=== PATIENT | male | born 1940 | race Caucasian/White ===

== ENCOUNTER 2017-11-30 16:52 | Inpatient (IN) | payer MEDICARE, OTHER ==
[~2017-11-30] VITALS: Ht 165.1 cm; Wt 83.0 kg
[~2017-11-30 16:52] MED LIST: ATEN50TA PO; ATOR40TA PO; FENO135C4 PO; FURO-144 PO; METF850T2 PO; PANT40TA2 PO; PIOG15TA8 PO
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
--- NOTE | 2017-11-30 17:02 | NUR ---
DR MORROW AT BEDSIDE FOR EVAL.
[2017-11-30 17:13] LABS: BASOPHILS # (AUTO) 0.1 /CMM (0.0-0.2); BASOPHILS % (AUTO) 0.7 % (0.0-2.0); EOSINOPHILS # (AUTO) 0.2 /CMM (0.0-0.7); EOSINOPHILS % (AUTO) 2.8 % (0.0-6.0); HEMATOCRIT 35 % (39-51); HEMOGLOBIN 12.1 g/dL (13.5-17.5); LYMPHOCYTES # (AUTO) 1.8 /CMM (0.8-4.8); LYMPHOCYTES % (AUTO) 20.2 % (20.0-44.0); MEAN CORPUSCULAR HEMOGLOBIN 29 PG (26.0-33.0); MEAN CORPUSCULAR HGB CONC 35 g/dl (31.0-36.0); MEAN CORPUSCULAR VOLUME 85 fL (80-96); MONOCYTES # (AUTO) 0.7 /CMM (0.1-1.30); MONOCYTES % (AUTO) 8.2 % (2.0-12.0); NEUTROPHILS % (AUTO) 68.1 % (43.0-81.0); PLATELET COUNT (AUTO) 330 /CMM (150-450); RDW COEFFICIENT OF VARIATION 14.3 (11.5-15.0); RED BLOOD CELL COUNT(AUTO) 4.14 MIL/uL (4.5-6.0); WHITE BLOOD COUNT (AUTO) 8.8 K/uL (4.3-11.0)
--- NOTE | 2017-11-30 17:21 | NUR ---
ANDREA RN,NETWORK SECURITY ADMINISTRATOR CALLED FOR EVAL
[2017-11-30 17:27] LABS: CALCIUM, SERUM 8.8 mg/dL (8.5-10.1); CARBON DIOXIDE 28 mmol/L (21-32); CHLORIDE 102 mmol/L (98-107); CREATININE 0.9 mg/dL (0.6-1.3); GLUCOSE 99 mg/dL (74-106); POTASSIUM 3.9 mmol/L (3.5-5.1); SODIUM SERUM 136 mmol/L (136-145); UREA NITROGEN, BLOOD 23 mg/dL (7-18)
[2017-11-30 17:35] LABS: ALANINE AMINOTRANSFERASE 30 U/L (12-78); ALBUMIN 3.6 g/dL (3.4-5.0); ALCOHOL, BLOOD < 3 mg/dL (0-0); ALKALINE PHOSPHATASE 95 U/L (46-116); ASPARTATE AMINOTRANSFERASE 27 U/L (15-37); BILIRUBIN,TOTAL 0.3 mg/dL (0.2-1.0); TOTAL PROTEIN, SERUM 7.4 g/dL (6.4-8.2)
[2017-11-30 17:36] LABS: ACETAMINOPHEN < 2 ug/ml (10-30); SALICYLATE < 2.8 mg/dL (2.8-20.0)
[2017-11-30 18:34] LABS: APPEARANCE,URINE Slightly Cloudy (CLEAR); BILIRUBIN,URINE Negative (NEGATIVE); BLOOD, URINE Negative Ery/uL (NEGATIVE); COLOR,URINE Yellow (YELLOW); KETONES,URINE Negative (NEGATIVE); LEUKOCYTE ESTERASE ,URINE Moderate (NEGATIVE); NITRITE, URINE Negative (NEGATIVE); PROTEIN,URINE Negative (NEGATIVE); UGLUCOSE Negative (NEGATIVE); UROBILINOGEN,URINE 0.2 EU/dL (0.2)
[2017-11-30 18:41] LABS: BACTERIA,URINE Few /HPF (None Seen); RBC,URINE 0-2 /HPF (0-2); SQUAMOUS EPITHELIAL CELL,UR Few /HPF (None Seen)
--- NOTE | 2017-11-30 18:50 | NUR ---
BED 211-B
--- NOTE | 2017-11-30 18:55 | NUR ---
REPORT GIVEN TO GURMEET MURPHY FOR LOR
[2017-11-30] MEDS ORDERED: MAGN400O6 PO (18:58)
[2017-11-30] MEDS ORDERED: ACET-2605 PO (18:58)
[2017-11-30] MEDS ORDERED: BISA10SU8 RC (18:58)
[2017-11-30] MEDS ORDERED: ACET-868 PO (18:58)
[2017-11-30] MEDS ORDERED: SENN-167 PO (18:58)
[2017-11-30] MEDS ORDERED: QUET25TA PO (18:58)
[2017-11-30] MEDS ORDERED: CHOL100044 PO (18:58)
[2017-11-30] MEDS ORDERED: METF500T7 PO (18:58)
[2017-11-30] MEDS ORDERED: CLOM50TA2 PO (18:58)
[2017-11-30] MEDS ORDERED: DOCU-141 PO (18:58)
[2017-11-30] MEDS ORDERED: FURO-145 PO (18:58)
[2017-11-30] MEDS ORDERED: NA P133E RC (18:58)
[2017-11-30] MEDS ORDERED: LORAZEPAM 0.5 MG TABLET PO PRN (20:00)
[2017-11-30] MEDS ORDERED: ACETAMINOPHEN 325 MG TABLET PO PRN (20:00)
[2017-11-30] MEDS ORDERED: MAG HYDROX/AL HYDROX/SIMETH 30 ML UDC PO PRN (20:00)
[2017-11-30] MEDS ORDERED: TEMAZEPAM 7.5 MG CAPSULE PO PRN (20:00)
[2017-11-30] MEDS ORDERED: MAGNESIUM HYDROXIDE 30 ML UDC PO PRN ×2 (20:00→21:30)
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
[2017-11-30] MEDS ORDERED: MISCELLANEOUS MED 1 EA EA PO PRN (21:30)
[2017-11-30] MEDS ORDERED: BISACODYL SUPP (10 MG) 10 MG/SUPP.RECT SUPP.RECT RC PRN (21:30)
[2017-11-30] MEDS ORDERED: NA PHOS,M-B/NA PHOS,DI-BA 1 EA ENEMA RC PRN (21:30)
[2017-11-30] MEDS ORDERED: DEXTROSE 50%-WATER 50 ML DISP.SYRIN IV PRN (21:30)
[2017-11-30] MEDS ORDERED: SULFAMETH/TRIMETH 800/160 MG 1 UDTAB TABLET PO ONE (21:37)
[2017-11-30] MEDS: SULFAMETH/TRIMETH 800/160 MG 1 UDTAB TABLET PO SCH (21:49)
[2017-11-30] MEDS ORDERED: ATORVASTATIN 10 MG TABLET ONE (21:52)
[2017-11-30] MEDS: BLOOD SUGAR DIAGNOSTIC 1 EACH STRIP VI SCH (22:00)
[2017-11-30] MEDS ORDERED: ATORVASTATIN 40 MG TABLET PO SCH (22:00)
[2017-12-01 00:23] VITALS: BP 133/80
[2017-12-01] MEDS: BLOOD SUGAR DIAGNOSTIC 1 EACH STRIP VI SCH ×4 (07:30→21:31)
[2017-12-01 08:00] VITALS: BP 120/80
[2017-12-01 08:13] LABS: BASOPHILS # (AUTO) 0.1 /CMM (0.0-0.2); BASOPHILS % (AUTO) 0.7 % (0.0-2.0); EOSINOPHILS # (AUTO) 0.2 /CMM (0.0-0.7); EOSINOPHILS % (AUTO) 2.8 % (0.0-6.0); HEMATOCRIT 35 % (39-51); HEMOGLOBIN 11.9 g/dL (13.5-17.5); LYMPHOCYTES % (AUTO) 13.4 % (20.0-44.0); MEAN CORPUSCULAR HEMOGLOBIN 30 PG (26.0-33.0); MEAN CORPUSCULAR HGB CONC 35 g/dl (31.0-36.0); MEAN CORPUSCULAR VOLUME 86 fL (80-96); MONOCYTES # (AUTO) 0.6 /CMM (0.1-1.30); MONOCYTES % (AUTO) 8.4 % (2.0-12.0); NEUTROPHILS # (AUTO) 5.7 /CMM (1.8-8.9); NEUTROPHILS % (AUTO) 74.7 % (43.0-81.0); PLATELET COUNT (AUTO) 304 /CMM (150-450); WHITE BLOOD COUNT (AUTO) 7.6 K/uL (4.3-11.0)
[2017-12-01 08:33] LABS: ALANINE AMINOTRANSFERASE 24 U/L (12-78); ALBUMIN 3.2 g/dL (3.4-5.0); ALKALINE PHOSPHATASE 85 U/L (46-116); ASPARTATE AMINOTRANSFERASE 25 U/L (15-37); BILIRUBIN,TOTAL 0.4 mg/dL (0.2-1.0); CALCIUM, SERUM 8.9 mg/dL (8.5-10.1); CARBON DIOXIDE 28 mmol/L (21-32); CHLORIDE 104 mmol/L (98-107); CREATININE 0.8 mg/dL (0.6-1.3); GLUCOSE 116 mg/dL (74-106); POTASSIUM 4.1 mmol/L (3.5-5.1); SODIUM SERUM 141 mmol/L (136-145); TOTAL PROTEIN, SERUM 6.9 g/dL (6.4-8.2); UREA NITROGEN, BLOOD 17 mg/dL (7-18)
[2017-12-01 08:35] LABS: CHOLESTEROL 132 mg/dL (<200); HDL CHOLESTEROL 41 mg/dL (40-60); LDL 78 mg/dL (0-99); TRIGLYCERIDES 77 mg/dL (30-150)
[2017-12-01] MEDS: METFORMIN XR 500 MG TAB.SR.24H PO SCH (08:48)
[2017-12-01] MEDS: SENNOSIDES 8.6 MG TABLET PO SCH (08:48)
[2017-12-01] MEDS: SULFAMETH/TRIMETH 800/160 MG 1 UDTAB TABLET PO SCH ×2 (08:49→21:25)
[2017-12-01] MEDS: CHOLECALCIFEROL 1,000 UNIT TABLET (VIT D3) PO SCH (08:49)
[2017-12-01] MEDS: PANTOPRAZOLE 40 MG TABLET.DR PO SCH (08:49)
[2017-12-01] MEDS: DOCUSATE SODIUM 100 MG CAPSULE PO SCH ×2 (08:49→17:28)
[2017-12-01] MEDS: FUROSEMIDE 20 MG TABLET PO SCH (08:55)
[2017-12-01] MEDS: INSULIN REGULAR, HUMAN 100 UNIT/ML 3 ML VIAL SQ PRN (12:21)
[2017-12-01 16:00] VITALS: BP 140/78
[2017-12-01 20:00] VITALS: BP 116/71
[2017-12-01] MEDS: QUETIAPINE FUMARATE 25 MG TABLET PO SCH (21:25)
[2017-12-01] MEDS: ATORVASTATIN 10 MG TABLET PO SCH (21:39)
[2017-12-02 08:00] VITALS: BP 111/59
[2017-12-02] MEDS: QUETIAPINE FUMARATE 25 MG TABLET PO SCH ×2 (08:14→21:57)
[2017-12-02] MEDS: SULFAMETH/TRIMETH 800/160 MG 1 UDTAB TABLET PO SCH ×2 (08:15→21:57)
[2017-12-02] MEDS: FUROSEMIDE 20 MG TABLET PO SCH (08:15)
[2017-12-02] MEDS: METFORMIN XR 500 MG TAB.SR.24H PO SCH (08:16)
[2017-12-02] MEDS: BLOOD SUGAR DIAGNOSTIC 1 EACH STRIP VI SCH ×4 (08:16→22:13)
[2017-12-02] MEDS: CHOLECALCIFEROL 1,000 UNIT TABLET (VIT D3) PO SCH (08:16)
[2017-12-02] MEDS: PANTOPRAZOLE 40 MG TABLET.DR PO SCH (08:16)
[2017-12-02] MEDS: SENNOSIDES 8.6 MG TABLET PO SCH (08:38)
[2017-12-02] MEDS: DOCUSATE SODIUM 100 MG CAPSULE PO SCH ×2 (08:38→16:59)
[2017-12-02 16:00] VITALS: BP_SYST 120; BP_SYST 124; BP_DIAS 60; BP_DIAS 74
[2017-12-02 19:47] VITALS: BP_SYST 101; BP_SYST 123; BP_DIAS 57; BP_DIAS 80
[2017-12-02] MEDS: ATORVASTATIN 10 MG TABLET PO SCH (21:57)
[2017-12-02] MEDS: MUPIROCIN 2% CREAM 15 GM TUBE TP SCH (21:57)
[2017-12-02] MEDS: *INSULIN REGULAR(HUMULIN R)HUM 100 UNIT/ML VIAL SQ PRN (22:43)
--- NOTE | 2017-12-03 01:18 | NUR ---
Pt's blood sugar level last night was 167 mg/dl & 3 Units of Regular Insulin was given SC as ordered by .
--- NOTE | 2017-12-03 01:18 | NUR ---
Pt has been continuously responding to internal stimuli, mentally preoccupied, disheveled, delusional, guarded, & anxious but compliant with care w/o any promptings.
[2017-12-03 08:00] VITALS: BP 106/60
[2017-12-03] MEDS: METFORMIN XR 500 MG TAB.SR.24H PO SCH (08:35)
[2017-12-03] MEDS: CHOLECALCIFEROL 1,000 UNIT TABLET (VIT D3) PO SCH (08:35)
[2017-12-03] MEDS: FUROSEMIDE 20 MG TABLET PO SCH (08:35)
[2017-12-03] MEDS: SENNOSIDES 8.6 MG TABLET PO SCH (08:36)
[2017-12-03] MEDS: SULFAMETH/TRIMETH 800/160 MG 1 UDTAB TABLET PO SCH ×2 (08:36→21:37)
[2017-12-03] MEDS: PANTOPRAZOLE 40 MG TABLET.DR PO SCH (08:37)
[2017-12-03] MEDS: QUETIAPINE FUMARATE 25 MG TABLET PO SCH ×2 (08:37→21:38)
[2017-12-03] MEDS: DOCUSATE SODIUM 100 MG CAPSULE PO SCH ×2 (08:37→16:39)
[2017-12-03] MEDS: BLOOD SUGAR DIAGNOSTIC 1 EACH STRIP VI SCH ×4 (08:38→21:38)
[2017-12-03] MEDS: MUPIROCIN 2% CREAM 15 GM TUBE TP SCH ×2 (08:41→21:38)
[2017-12-03 16:10] VITALS: BP 120/69
--- NOTE | 2017-12-03 16:44 | NUR ---
Initial Discharge Plan: Pt lives in the [facility] facility, [address] [place] [address]; . Pt would like to return to the Assisted Living facility upon discharge. TIGIST called the assisted living facility however was unable to speak to anyone.TIGIST left a voicemail message for Kiera. TIGIST also contacted pts person to notify, Casey Strickland , found on face sheet and left a message requesting for a callback.
--- NOTE | 2017-12-03 19:30 | NUR ---
GPS RN NOTE, RECEIVED PATIENT AWAKE AND IN BED, HAS A COMPLAINT OF LOWER BACK PAIN AT 3 OUT 10 ON THE PAIN SCALE. PATIENT IS BEING TREATED WITH ORAL PAIN MEDICATION FOR THIS PAIN. PATIENT DISPLAYING NO S/S OF APPARENT DISTRESS AT THIS TIME. PATIENT BREATHING IS UNLABORED WITH EQUAL RISE AND FALL OF THE CHEST. PATIENT IS ALERT AND ORIENTED X 2 ON ROOM AIR WITH A SPO2 92 %. PATIENT IS MED COMPLIANT, CONFUSED AT TIMES, IRRITABLE, ANXIOUS, COOPERATIVE, AND NEEDS REORIENTATION AT TIMES. PATIENT DENIES SI AND HI AT THIS TIME. PATIENT ASSISTED WITH TURNING AND REPOSITIONING Q2HR AND PRN FOR COMFORT AND CIRCULATION. PATIENT HAS NO NEEDS AT THIS TIME. PATIENT EDUCATED ON THE USE OF THE CALL LINDSEY. PATIENT BED SIDE RAILS UP X 2 FOR SAFETY, BED IS LOCKED AND LOW, WILL CONTINUE TO MONITOR THIS PATIENT WITH THE HELP OF STAFF.
[2017-12-03 19:44] VITALS: BP 113/61
[2017-12-03] MEDS: ATORVASTATIN 10 MG TABLET PO SCH (21:38)
--- NOTE | 2017-12-03 21:38 | NUR ---
GPS RN NOTE, PERFORMED ACCU CHECK ON PATIENT WITH A BLOOD SUGAR RESULT OF 109. NO INSULIN COVERAGE PER SLIDING SCALE AT THIS TIME. WILL CONTINUE TO MONITOR THIS PATIENT.
[2017-12-04 08:00] VITALS: BP 100/52
[2017-12-04] MEDS: SULFAMETH/TRIMETH 800/160 MG 1 UDTAB TABLET PO SCH ×2 (08:05→21:13)
[2017-12-04] MEDS: SENNOSIDES 8.6 MG TABLET PO SCH (08:05)
[2017-12-04] MEDS: DOCUSATE SODIUM 100 MG CAPSULE PO SCH ×2 (08:05→16:28)
[2017-12-04] MEDS: CHOLECALCIFEROL 1,000 UNIT TABLET (VIT D3) PO SCH (08:05)
[2017-12-04] MEDS: METFORMIN XR 500 MG TAB.SR.24H PO SCH (08:05)
[2017-12-04] MEDS: PANTOPRAZOLE 40 MG TABLET.DR PO SCH (08:05)
[2017-12-04] MEDS: FUROSEMIDE 20 MG TABLET PO SCH (08:05)
[2017-12-04] MEDS: QUETIAPINE FUMARATE 25 MG TABLET PO SCH ×2 (08:40→21:13)
[2017-12-04] MEDS: BLOOD SUGAR DIAGNOSTIC 1 EACH STRIP VI SCH ×4 (08:40→21:42)
[2017-12-04] MEDS: MUPIROCIN 2% CREAM 15 GM TUBE TP SCH ×2 (08:41→21:14)
--- NOTE | 2017-12-04 10:41 | NUR ---
Discharge Planning: TIGIST received a message from Kiera from [facility], [facility] informing that pt will be transferring to [facility] when he is ready for discharge. TIGIST contacted Kiera and left a message requesting a callback. TIGIST will follow up to ensure pt is safely and properly discharged.
--- NOTE | 2017-12-04 13:19 | NUR ---
Discharge Planning: TIGIST spoke to Kyle from [facility] and inquired about pts acceptance to their facility, per [facility] reports. TIGIST was informed by Kiear from [facility] that pt was no longer appropriate for their facility and that [facility] can best address his needs. Kyle asked to review inquiry prior to deciding. TIGIST will fax inquiry to [facility], Kyle Núñez on this date.
--- NOTE | 2017-12-04 13:25 | NUR ---
Discharge Planning: SW faxed inquiry (face sheet, medical H&P, P&P, and medication list) to [facility] , attention to Kyle. SW will follow up to ensure pt is safely and properly discharged.
[2017-12-04 16:07] VITALS: BP 116/67
[2017-12-04] MEDS: *INSULIN REGULAR(HUMULIN R)HUM 100 UNIT/ML VIAL SQ PRN (17:24)
--- NOTE | 2017-12-04 17:52 | NUR ---
GPS/RN BS 142. 2 UNITS REGULAR INSULIN ADMINISTERED, WILL CONTINUE TO MONITOR.
[2017-12-04 20:00] VITALS: BP 113/55
[2017-12-04] MEDS: ATORVASTATIN 10 MG TABLET PO SCH (21:13)
[2017-12-04 23:00] VITALS: BP 116/68
[2017-12-05] MEDS ORDERED: Z GUARD REMEDY 2 OZ OINT TP PRN (06:00)
[2017-12-05] MEDS: BLOOD SUGAR DIAGNOSTIC 1 EACH STRIP VI SCH ×4 (07:42→21:42)
[2017-12-05] MEDS: PANTOPRAZOLE 40 MG TABLET.DR PO SCH (07:44)
[2017-12-05] MEDS: SULFAMETH/TRIMETH 800/160 MG 1 UDTAB TABLET PO SCH ×2 (09:04→21:05)
[2017-12-05] MEDS: FUROSEMIDE 20 MG TABLET PO SCH (09:04)
[2017-12-05] MEDS: CHOLECALCIFEROL 1,000 UNIT TABLET (VIT D3) PO SCH (09:04)
[2017-12-05] MEDS: DOCUSATE SODIUM 100 MG CAPSULE PO SCH ×2 (09:04→16:24)
[2017-12-05] MEDS: METFORMIN XR 500 MG TAB.SR.24H PO SCH (09:04)
[2017-12-05] MEDS: SENNOSIDES 8.6 MG TABLET PO SCH (09:04)
[2017-12-05] MEDS: QUETIAPINE FUMARATE 25 MG TABLET PO SCH ×2 (09:05→21:06)
[2017-12-05 09:08] VITALS: BP 112/64
[2017-12-05] MEDS: MUPIROCIN 2% CREAM 15 GM TUBE TP SCH ×2 (09:32→21:07)
[2017-12-05] MEDS: INSULIN REGULAR, HUMAN 100 UNIT/ML 3 ML VIAL SQ PRN (09:34)
--- NOTE | 2017-12-05 11:19 | NUR ---
Discharge Planning: TIGIST spoke to Colleen from the [facility] per pt request. Pt had concerns due to a pending court appearance on 12/07/2016. TIGIST informed the office that pt was in the hospital and date of discharge was uncertain. Per Colleen, if pt fails to report to her court appearance a warrant will be issued. Pt can not be excused based on the law, per Colleen. TIGIST was informed that once pt is released she should present herself to the [facility] clerks office at the [facility] immediately and provide proof of her stay in the hospital. TIGIST will inform pt. Addendum: 12/05/17 at 1329 by JASON ESCOTO Discharging Planning note pertains to another pt, Haley Browning.
--- NOTE | 2017-12-05 13:29 | NUR ---
Discharge Planning: TIGIST arranged with Kyle from [facility] to assess pt tomorrow, at 10:30- 11:00 am to inform placement. SW will follow up to ensure pt is properly and safely discharged.
[2017-12-05 16:00] VITALS: BP 120/64
[2017-12-05 20:32] VITALS: BP 121/69
[2017-12-05] MEDS: ATORVASTATIN 10 MG TABLET PO SCH (21:05)
[2017-12-06] MEDS: BLOOD SUGAR DIAGNOSTIC 1 EACH STRIP VI SCH ×4 (07:49→21:43)
[2017-12-06 08:00] VITALS: BP 109/60
[2017-12-06] MEDS: PANTOPRAZOLE 40 MG TABLET.DR PO SCH (08:15)
[2017-12-06] MEDS: METFORMIN XR 500 MG TAB.SR.24H PO SCH (08:41)
[2017-12-06] MEDS: SENNOSIDES 8.6 MG TABLET PO SCH (08:41)
[2017-12-06] MEDS: SULFAMETH/TRIMETH 800/160 MG 1 UDTAB TABLET PO SCH ×2 (08:41→21:42)
[2017-12-06] MEDS: MUPIROCIN 2% CREAM 15 GM TUBE TP SCH ×2 (08:41→21:43)
[2017-12-06] MEDS: FUROSEMIDE 20 MG TABLET PO SCH (08:41)
[2017-12-06] MEDS: DOCUSATE SODIUM 100 MG CAPSULE PO SCH ×2 (08:41→16:14)
[2017-12-06] MEDS: CHOLECALCIFEROL 1,000 UNIT TABLET (VIT D3) PO SCH (08:41)
[2017-12-06] MEDS: QUETIAPINE FUMARATE 25 MG TABLET PO SCH ×2 (08:42→21:42)
--- NOTE | 2017-12-06 09:40 | NUR ---
GPS/RN-NOTES PATIENT C/O OF NOT HAVING BM FOR SEVERAL DAYS. DULCOLAX SUPPOSITORY GIVEN PRN ORDER. WILL CONT. MONITORING.
--- NOTE | 2017-12-06 10:35 | NUR ---
GPS/RN-NOTES PATIENT HAD X1 MEDIUM BM.
--- NOTE | 2017-12-06 11:47 | NUR ---
Discharge Planning: TIGIST facilitated pts assessment from [facility] on this date. Per Kyle, Staff pt can be discharged to their facility when he is ready. TIGIST will follow up.
--- NOTE | 2017-12-06 11:50 | NUR ---
Discharge Planning: SW discussed pts discharge plan with Dr. Schneider. Per Psychiatrist pt is ready for discharge on Sunday12/10/2016. SW will follow up and make arrangements for pts discharge.
--- NOTE | 2017-12-06 12:30 | NUR ---
GPS/RN-NOTES PATIENT BLOOD SUGAR WAS 139MG/DL, INSULIN COVERAGE OF 2 UNITS R NOT GIVEN DUE TO PATIENT STATED" NO INSULIN AT THIS TIME". OFFERED X3 STILL REFUSED. PATIENT HAD NO S/SX OF HYPERGLYCEMIA AT THIS TIME. WILL CONT. MONITORING.
[2017-12-06 16:00] VITALS: BP 109/62
[2017-12-06 20:00] VITALS: BP 112/64
[2017-12-06] MEDS: ATORVASTATIN 10 MG TABLET PO SCH (21:42)
[2017-12-07] MEDS: BLOOD SUGAR DIAGNOSTIC 1 EACH STRIP VI SCH ×4 (07:42→21:03)
[2017-12-07] MEDS: PANTOPRAZOLE 40 MG TABLET.DR PO SCH (07:45)
[2017-12-07 08:00] VITALS: BP 106/62
[2017-12-07] MEDS: METFORMIN XR 500 MG TAB.SR.24H PO SCH (08:37)
[2017-12-07] MEDS: SENNOSIDES 8.6 MG TABLET PO SCH (08:37)
[2017-12-07] MEDS: DOCUSATE SODIUM 100 MG CAPSULE PO SCH ×2 (08:37→16:06)
[2017-12-07] MEDS: SULFAMETH/TRIMETH 800/160 MG 1 UDTAB TABLET PO SCH ×2 (08:38→21:25)
[2017-12-07] MEDS: QUETIAPINE FUMARATE 25 MG TABLET PO SCH ×2 (08:38→21:25)
[2017-12-07] MEDS: FUROSEMIDE 20 MG TABLET PO SCH (08:38)
[2017-12-07] MEDS: CHOLECALCIFEROL 1,000 UNIT TABLET (VIT D3) PO SCH (08:38)
[2017-12-07] MEDS: MUPIROCIN 2% CREAM 15 GM TUBE TP SCH ×2 (08:39→20:26)
[2017-12-07 16:00] VITALS: BP 122/78
[2017-12-07 20:00] VITALS: BP 120/71
[2017-12-07] MEDS: ATORVASTATIN 10 MG TABLET PO SCH (21:25)
[2017-12-08] MEDS: BLOOD SUGAR DIAGNOSTIC 1 EACH STRIP VI SCH ×4 (07:22→22:50)
[2017-12-08] MEDS: PANTOPRAZOLE 40 MG TABLET.DR PO SCH (07:25)
[2017-12-08 08:07] VITALS: BP 141/77
[2017-12-08] MEDS: QUETIAPINE FUMARATE 25 MG TABLET PO SCH ×2 (08:17→21:22)
[2017-12-08] MEDS: SENNOSIDES 8.6 MG TABLET PO SCH (08:17)
[2017-12-08] MEDS: CHOLECALCIFEROL 1,000 UNIT TABLET (VIT D3) PO SCH (08:17)
[2017-12-08] MEDS: DOCUSATE SODIUM 100 MG CAPSULE PO SCH ×2 (08:17→16:20)
[2017-12-08] MEDS: METFORMIN XR 500 MG TAB.SR.24H PO SCH (08:17)
[2017-12-08] MEDS: SULFAMETH/TRIMETH 800/160 MG 1 UDTAB TABLET PO SCH ×2 (08:17→20:24)
[2017-12-08] MEDS: FUROSEMIDE 20 MG TABLET PO SCH (08:17)
[2017-12-08] MEDS: MUPIROCIN 2% CREAM 15 GM TUBE TP SCH ×2 (08:18→20:26)
[2017-12-08 15:52] VITALS: BP 131/80
[2017-12-08 20:00] VITALS: BP 132/74
[2017-12-08] MEDS: ATORVASTATIN 10 MG TABLET PO SCH (21:22)
--- NOTE | 2017-12-08 22:51 | NUR ---
ACCUCHECK 128 MG/DL, NO INSULIN DUE AT THIS TIME.
[2017-12-09] MEDS: BLOOD SUGAR DIAGNOSTIC 1 EACH STRIP VI SCH ×4 (07:50→21:30)
[2017-12-09] MEDS: PANTOPRAZOLE 40 MG TABLET.DR PO SCH (07:53)
[2017-12-09] MEDS: DOCUSATE SODIUM 100 MG CAPSULE PO SCH ×2 (08:48→17:48)
[2017-12-09] MEDS: MUPIROCIN 2% CREAM 15 GM TUBE TP SCH ×2 (08:48→21:29)
[2017-12-09] MEDS: SENNOSIDES 8.6 MG TABLET PO SCH (08:48)
[2017-12-09] MEDS: FUROSEMIDE 20 MG TABLET PO SCH (08:48)
[2017-12-09] MEDS: METFORMIN XR 500 MG TAB.SR.24H PO SCH (08:48)
[2017-12-09] MEDS: CHOLECALCIFEROL 1,000 UNIT TABLET (VIT D3) PO SCH (08:48)
[2017-12-09] MEDS: QUETIAPINE FUMARATE 25 MG TABLET PO SCH ×2 (08:48→21:29)
[2017-12-09] MEDS: SULFAMETH/TRIMETH 800/160 MG 1 UDTAB TABLET PO SCH ×2 (08:48→21:28)
[2017-12-09 09:00] VITALS: BP 126/90
[2017-12-09 16:00] VITALS: BP 112/59
[2017-12-09 19:40] VITALS: BP 116/62
[2017-12-09] MEDS: ATORVASTATIN 10 MG TABLET PO SCH (21:28)
[2017-12-10 08:00] VITALS: BP 105/58
[2017-12-10] MEDS: CHOLECALCIFEROL 1,000 UNIT TABLET (VIT D3) PO SCH (08:50)
[2017-12-10] MEDS: DOCUSATE SODIUM 100 MG CAPSULE PO SCH (08:50)
[2017-12-10] MEDS: METFORMIN XR 500 MG TAB.SR.24H PO SCH (08:51)
[2017-12-10] MEDS: FUROSEMIDE 20 MG TABLET PO SCH (08:51)
[2017-12-10] MEDS: PANTOPRAZOLE 40 MG TABLET.DR PO SCH (08:51)
[2017-12-10] MEDS: SENNOSIDES 8.6 MG TABLET PO SCH (08:51)
[2017-12-10] MEDS: QUETIAPINE FUMARATE 25 MG TABLET PO SCH (08:51)
[2017-12-10] MEDS: SULFAMETH/TRIMETH 800/160 MG 1 UDTAB TABLET PO SCH (09:50)
[2017-12-10] MEDS: MUPIROCIN 2% CREAM 15 GM TUBE TP SCH (09:50)
[2017-12-10] MEDS: BLOOD SUGAR DIAGNOSTIC 1 EACH STRIP VI SCH (10:12)
--- NOTE | 2017-12-10 10:32 | NUR ---
Discharge Planning: TIGIST spoke to Dez, Staff from [facility] to remind them of pts discharge to their facility on this date. Dez was unable to locate Kyle, Coordinator at the time, however stated that she would relay the information to him.
--- NOTE | 2017-12-10 11:30 | NUR ---
TEACHER PRESCHOOL NOTE:PATIENT ALERT ,VERBALLY RESPONSIVE ,DENIES SI/HI/AVH, VS STABLE ,NO C/O PAIN . AND ANNE-MARIE BACK ROLL LATHE OPERATOR NOTIFIED OF DISCHARGE WITH DISCHARGE ORDERS ALL ORDERS CARRIED OUT .ALL BELONGINGS RETURN TO PATIENT REPORT GIVEN TO DARWIN MURPHY IN [facility] .PATIENT LEFT AT 1130 BY AMBULANCE .
--- NOTE | 2017-12-10 14:00 | NUR ---
Discharge Note: Patient will be discharged to [facility], [address] [place] [address]; via ambulance (trip # [id number]) at 10:30 am. Pt has been notified and is in agreement. SW spoke to Treva, [facility] of pts transfer; which she is aware and in agreement. SW also notified pts contact representative, Casey Strickland . Pts Technical Artist is Dr. Arroyo, [address] [place] [address]; and Psychiatrist is Dr. Schneider, [address] [place] [address]; .
== END 2017-12-10 13:00 | DRG 885 ==
LOC: ER 16:54 → GPS 19:35
PROVIDERS: ADMIT Psychiatry & Neurology Psychiatry; ATTEND Internal Medicine
DX: F29 Unspecified psychosis not due to a substance or known physiological condition (principal); E11.9 Type 2 diabetes mellitus without complications; F03.91 Unspecified dementia, unspecified severity, with behavioral disturbance; F32.3 Major depressive disorder, single episode, severe with psychotic features; E66.01 Morbid (severe) obesity due to excess calories; I10 Essential (primary) hypertension; E78.5 Hyperlipidemia, unspecified; Z79.84 Long term (current) use of oral hypoglycemic drugs; Z68.30 Body mass index [BMI] 30.0-30.9, adult; Z73.6 Limitation of activities due to disability
CPT/HCPCS: 36415; 80048-TC; 80053-TC; 80061-TC; 80076-TC; 80305; 81000-TC; 82962-TC; 85025-TC; 87081-TC; 87086-TC; 97110-TC; 97116-TC; 97530-TC; A4606; G0480; J1815; Z7610

== ENCOUNTER 2022-02-28 00:21 | Inpatient (IN) | payer MEDICARE, OTHER ==
[~2022-02-28] VITALS: Ht 167.6 cm; Wt 78.9 kg
[~2022-02-28 00:21] MED LIST changes: +ACET-2605 PO; +ACET-868 PO; -ATEN50TA PO; +BISA10SU11 RC; +CHOL100044 PO; +CLOM50TA18 PO; +DOCU-141 PO; -FENO135C4 PO; -FURO-144 PO; +FURO-145 PO; +MAGN400O6 PO; +METF-881 PO; -METF850T2 PO; +NA P133E RC; -PIOG15TA8 PO; +QUET25TA PO; +SENN-261 PO
--- NOTE | 2022-02-28 00:22 | NUR ---
DAYA Santillan FROM [facility] FOR C/O L SIDED ABD PAIN SINCE DINNER TIME. +NAUSEA. PT A/OX3. O2 NRB @ 10LPM; SATTING AT 94%. CONNECTED PT TO POX AND MONITOR.
[2022-02-28] MEDS ORDERED: IV NS 0.9% 1,000 ML BAG IV ONE (00:30)
[2022-02-28] MEDS ORDERED: FENTANYL PF 100MCG/2ML AMPUL IV ONE (00:30)
[2022-02-28] MEDS ORDERED: ONDANSETRON HCL/PF 4 MG/2 ML VIAL IVP ONE (00:30)
[2022-02-28] MEDS ORDERED: ONDANSETRON HCL/PF 4 MG/2 ML VIAL ONE (00:44)
[2022-02-28] MEDS ORDERED: FENTANYL PF 100MCG/2ML AMPUL ONE (00:44)
--- NOTE | 2022-02-28 00:50 | NUR ---
RAC #20G S/L; BLOOD COLLECTED AND GIVEN TO LAB
[2022-02-28 00:59] LABS: BASOPHILS % (AUTO) 0.2 % (0.0-2.0); EOSINOPHILS % (AUTO) 0.1 % (0.0-6.0); HEMATOCRIT 43 % (39-51); HEMOGLOBIN 14.3 g/dL (13.5-17.5); LYMPHOCYTES # (AUTO) 1.5 K/uL (0.8-4.8); LYMPHOCYTES % (AUTO) 5.1 % (20.0-44.0); MEAN CORPUSCULAR HGB CONC 33 g/dl (31.0-36.0); MEAN CORPUSCULAR VOLUME 95 fL (80-96); MONOCYTES # (AUTO) 2.5 K/uL (0.1-1.30); MONOCYTES % (AUTO) 8.6 % (2.0-12.0); NEUTROPHILS # (AUTO) 25.5 K/uL (1.8-8.9); PLATELET COUNT (AUTO) 333 K/uL (150-450); RED BLOOD CELL COUNT(AUTO) 4.55 MIL/uL (4.5-6.0); WHITE BLOOD COUNT (AUTO) 29.6 K/uL (4.3-11.0)
[2022-02-28 01:13] LABS: BAND % (MANUAL) 2 % (0.0-5.0); LYMPHOCYTES % (MANUAL) 8 % (16-48); MONOCYTES % (MANUAL) 6 % (0-11.0); NEUTROPHILS % (MANUAL) 84 (42-76)
[2022-02-28] MEDS ORDERED: IOHEXOL-300 100 ML VIAL IV ONE (01:19)
[2022-02-28] MEDS ORDERED: CT SWABBABLE VALVE TRANS SET 1 EA INFUS.SET MC ONE (01:19)
[2022-02-28] MEDS ORDERED: IV NS 0.9% 250 ML IV ONE (01:19)
[2022-02-28 01:31] LABS: CALCIUM, SERUM 9.9 mg/dL (8.5-10.1); CARBON DIOXIDE 26 mmol/L (21-32); CHLORIDE 94 mmol/L (98-107); CREATININE 1.6 mg/dL (0.6-1.3); GLUCOSE 203 mg/dL (74-106); SODIUM SERUM 134 mmol/L (136-145); UREA NITROGEN, BLOOD 19 mg/dL (7-18)
[2022-02-28 01:43] LABS: ALANINE AMINOTRANSFERASE 27 U/L (12-78); ALBUMIN 3.4 g/dL (3.4-5.0); ALKALINE PHOSPHATASE 95 U/L (46-116); ASPARTATE AMINOTRANSFERASE 34 U/L (15-37); BILIRUBIN,DIRECT 0.4 mg/dL (0.0-0.2); BILIRUBIN,TOTAL 1.4 mg/dL (0.2-1.0); LIPASE 192 U/L (73-393); TOTAL PROTEIN, SERUM 7.4 g/dL (6.4-8.2)
[2022-02-28] MEDS: IV NS 0.9% 1,000 ML IV PRN ×2 (02:00→03:59)
--- NOTE | 2022-02-28 02:04 | NUR ---
NO URINE OUTPUT AT THIS TIME; NOTIFIED DR. BERRY
--- NOTE | 2022-02-28 02:33 | NUR ---
RAPID COVID COLLECTED AND SENT TO LAB.
[2022-02-28] MEDS ORDERED: ACETAMINOPHEN 325 MG TABLET PO PRN ×2 (03:00→08:30)
[2022-02-28] MEDS ORDERED: NA PHOS,M-B/NA PHOS,DI-BA 1 EA ENEMA RC PRN (03:00)
--- NOTE | 2022-02-28 05:23 | NUR ---
LARGE LOOSE BM NOTED; KEPT PT CLEAN AND DRY. LINENS CHANGED. REPOSITIONED PT. REDNESS NOTED TO SACRUM
--- NOTE | 2022-02-28 07:09 | NUR ---
PT AWAKE AND ON NRB @ 15LPM TOLERATING AT 92%. CONNECTED PT TO POX AND MONITOR. SAFETY MEASURES IN PLACE. RAC #20G S/L PATENT AND INTACT.
[2022-02-28] MEDS ORDERED: DIVA250T4 PO (07:34)
[2022-02-28] MEDS ORDERED: GLUC1KIT IM (07:34)
[2022-02-28] MEDS ORDERED: MAG30ORA PO (07:34)
[2022-02-28] MEDS ORDERED: BENA5TAB5 PO (07:34)
[2022-02-28] MEDS ORDERED: CYAN500T9 PO (07:34)
--- NOTE | 2022-02-28 07:52 | NUR ---
REPORT GIVEN TO NARISSA FOR LOR
--- NOTE | 2022-02-28 07:54 | NUR ---
CONTACTED RENAE HARRIS REQUESTING THE CODE STATUS TO BE INPUTTED IN PT'S DOCUMENTATION. STATING THAT THE PT HAS A DNR AND COMFORT MEASURE TREATMENT ONLY
--- NOTE | 2022-02-28 07:56 | NUR ---
PT TRANSPORTED TO [facility] FLOOR
--- NOTE | 2022-02-28 07:58 | NUR ---
RN NOTES RECEIVED PT FROM E.R. STAFF VIA [facility], TRANSFERRED PT TO BED, MADE COMFORTABLE, PT'S EYES ARE CLOSED, NON RESPONSIVE TO VERBAL AND PAINFUL STIMULI, ON O2 AT 15L VIA NON REBREATHER MASK, VITAL SIGNS TAKEN AND RECORDED, KEPT WARM AND COMFORTABLE, WILL CONTINUE TO MONITOR.
[2022-02-28 08:00] VITALS: BP 52/31
[2022-02-28] MEDS ORDERED: ENOXAPARIN SODIUM 40 MG/0.4 ML DISP.SYRIN SQ SCH (08:30)
[2022-02-28] MEDS ORDERED: MINERAL OIL 133 ML (PYXIS) 1 EA ENEMA RC PRN (08:30)
[2022-02-28] MEDS ORDERED: Z GUARD REMEDY 4 OZ OINT TP PRN (08:30)
[2022-02-28] MEDS ORDERED: ONDANSETRON HCL/PF 4 MG/2 ML VIAL IVP PRN (08:30)
[2022-02-28] MEDS ORDERED: LACTULOSE 10 G/15 ML UDC (PYXIS) PO PRN (08:30)
[2022-02-28] MEDS ORDERED: IV NS 0.9% 1,000 ML IV PRN (08:30)
[2022-02-28] MEDS ORDERED: QUETIAPINE FUMARATE 25 MG TABLET PO SCH (09:00)
[2022-02-28] MEDS ORDERED: DOCUSATE SODIUM 100 MG CAPSULE PO SCH (09:00)
[2022-02-28] MEDS ORDERED: PANTOPRAZOLE 40 MG TABLET.DR PO SCH (09:00)
--- NOTE | 2022-02-28 09:00 | NUR ---
RN NOTES PO MEDS NOT GIVEN, PT NON RESPONSIVE.
--- NOTE | 2022-02-28 10:05 | NUR ---
RN NOTES MR. SNYDER, PT'S DPOA AT BEDSIDE, CONFIRMED PT'S POLST ORDER.
--- NOTE | 2022-02-28 10:30 | NUR ---
RN NOTES DR. LENNON AND BEDSIDE, SPEAKING WITH DPOA MR SNYDER, PLAN OF CARE BEING DISCUSSED.
--- NOTE | 2022-02-28 11:05 | NUR ---
RN NOTES PT IN BED, NON RESPONSIVE, NO BREATHING NOTED, NO CHEST RISE AND FALL NOTED, NO PALPABLE PULSE, NO VITAL SIGNS APPPRECIATED, CONFIRMED WITH CHARGE NURSE MARGARITA MURPHY, DR. LENNON INFORMED OF PT'S PASSING, MR. SHELBY SNYDER, PT'S DPOA INFORMED, NURSE GAS SUBSTATION OPERATOR PAULA INFORMED, MR SNYDER WILL CALL MORTUARY FOR ARRANGEMENTS, WILL FOLLOW UP.
--- NOTE | 2022-02-28 11:30 | NUR ---
RN NOTES CALLED [employer] PER INSTRUCTIONS OF DPOA, ARRANGEMENTS MADE FOR ASSOCIATE SALES REPRESENTATIVE OF PT'S REMAINS, CONSENT GIVEN BY DPOA MR SNYDER TO RELEASE PT'S REMAINS TO MORTUARY, PT HAS NO BELONGINGS, POST MORTEM CARE DONE, WILL RELEASE BODY TO [facility], [employer] INFORMED, REFERENCE NUMBER OBTAINED #[id number].
--- NOTE | 2022-02-28 13:48 | NUR ---
RN NOTES BODY PICKED UP BY [facility]ORT[facility], ALL PAPERS SIGNED.
[2022-02-28] MEDS ORDERED: ATORVASTATIN 40 MG TABLET PO SCH (22:00)
== END 2022-02-28 11:05 | DRG 177 ==
LOC: ER 00:23 → TELE 07:50 → MED 10:48
PROVIDERS: ADMIT Internal Medicine; ATTEND Internal Medicine
DX: J69.0 Pneumonitis due to inhalation of food and vomit (principal); J96.01 Acute respiratory failure with hypoxia; N17.0 Acute kidney failure with tubular necrosis; E87.1 Hypo-osmolality and hyponatremia; I13.10 Hypertensive heart and chronic kidney disease without heart failure, with stage 1 through stage 4 chronic kidney disease, or unspecified chronic kidney disease; N18.9 Chronic kidney disease, unspecified; Z51.5 Encounter for palliative care; Z66 Do not resuscitate; Z96.649 Presence of unspecified artificial hip joint; F03.90 Unspecified dementia, unspecified severity, without behavioral disturbance, psychotic disturbance, mood disturbance, and anxiety; E11.22 Type 2 diabetes mellitus with diabetic chronic kidney disease; E78.5 Hyperlipidemia, unspecified
CPT/HCPCS: 36415; 80048-TC; 80076-TC; 83690-TC; 85025-TC; 87081-TC; C9803; G0378; J2405; J3010; J7030; J7050; Q9967